=== PATIENT | male | born 2005 | race Caucasian/White ===

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

== ENCOUNTER → 2024-07-01 10:11 | Outpatient (CLI) | payer OTHER, SELFPAY | PROVIDERS: Visit Provider Nurse Practitioner Family | DX: J02.9 Acute pharyngitis, unspecified (principal); R53.83 Other fatigue | CPT/HCPCS: 36415; 86318; 87070 ==

== ENCOUNTER → 2024-07-01 10:33 | Outpatient (CLI) | payer OTHER, SELFPAY ==
[2024-07-01 10:56] LABS: Monotest Negative (Negative)
== END ==
PROVIDERS: Referring Provider Nurse Practitioner Family; Visit Provider Nurse Practitioner Family
DX: R53.83 Other fatigue (principal)
CPT/HCPCS: 36415; 86318